=== PATIENT | female | born 1955 | race Two or more races ===

== ENCOUNTER 2017-12-24 11:09 | Outpatient (CLI) | payer OTHER | END 2017-12-24 11:46 | disposition home or self-care (01) | LOC: RAD 501 11:09 | DX: R07.9 Chest pain, unspecified (principal) ==

== ENCOUNTER 2018-11-09 08:42 | Outpatient (CLI) | payer OTHER | END 2018-11-09 08:51 | disposition home or self-care (01) | LOC: RAD 501 08:42 | DX: J45.31 Mild persistent asthma with (acute) exacerbation (principal) ==